=== PATIENT | male | born 1970 | race Caucasian/White ===

== ENCOUNTER 2024-07-10 07:39 | Outpatient (CLI) | payer OTHER ==
[~2024-07-10] VITALS: Ht 182.9 cm; Wt 83.9 kg
[~2024-07-10 07:39] MED LIST: NO HOME MEDS
[2024-07-10 08:14] VITALS: PULSE 96; RESP 16; O2SAT 98
[2024-07-10] MEDS: albuterol 2.5 MG/3 ML nebule NEB ONE (08:19)
[2024-07-10 08:25] VITALS: PULSE 93; RESP 14
== END 2024-07-10 23:59 | disposition home or self-care (01) ==
LOC: RT 07:39
PROVIDERS: ATTEND Chiropractor
DX: R94.2 Abnormal results of pulmonary function studies (principal); J45.909 Unspecified asthma, uncomplicated
CPT/HCPCS: 94060; 94760